=== PATIENT | male | born 1990 | race Caucasian/White ===

== ENCOUNTER 2018-06-29 05:25 | Emergency (ER) | payer SELFPAY ==
[~2018-06-29] VITALS: Ht 188 cm; Wt 106.1 kg
[2018-06-29 05:32] VITALS: BP 145/94
[2018-06-29 06:10] VITALS: BP 145/94
== END 2018-06-29 06:10 | disposition home or self-care (01) ==
LOC: MED 05:25
DX: S02.5XXA Fracture of tooth (traumatic), initial encounter for closed fracture (principal); X58.XXXA Exposure to other specified factors, initial encounter; Y93.89 Activity, other specified; Y92.89 Other specified places as the place of occurrence of the external cause; Y99.8 Other external cause status
CPT/HCPCS: 99283

== ENCOUNTER 2020-01-31 19:22 | Emergency (ER) | payer SELFPAY ==
[~2020-01-31] VITALS: Ht 188 cm; Wt 97.5 kg
[2020-01-31 19:45] VITALS: BP 146/110
--- NOTE | 2020-01-31 20:50 | NUR ---
PT ASSESSED AND EVALUATED BY SEE CARBAJAL. NO NURSING INTERVENTIONS NEED AT THIS TIME.
[2020-01-31 20:53] VITALS: BP 146/110
--- NOTE | 2020-01-31 20:53 | NUR ---
Patient discharged with v/s stable. Written and verbal after care instructions given and explained. Patient alert, oriented and verbalized understanding of instructions. Ambulatory with steady gait. All questions addressed prior to discharge. ID band removed. Patient advised to follow up with PMD. Rx of NOFRAN, AND MOTRIN given. Patient educated on indication of medication including possible reaction and side effects. Opportunity to ask questions provided and answered.
== END 2020-01-31 20:53 | disposition home or self-care (01) ==
LOC: EEVIPCON 19:22 → MED 19:22
DX: K52.9 Noninfective gastroenteritis and colitis, unspecified (principal); F17.210 Nicotine dependence, cigarettes, uncomplicated
CPT/HCPCS: 99283

== ENCOUNTER 2020-06-18 15:46 | Emergency (ER) | payer MEDICAID ==
[~2020-06-18] VITALS: Ht 188 cm; Wt 93.9 kg
[2020-06-18 15:52] VITALS: BP 184/98
--- NOTE | 2020-06-18 15:55 | NUR ---
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 A, A, O x 4, cooperative, HOB elevated Well appearing 29 yo male c/o [birth year], moving other 3 exts w/o difficulty Resp even and unlabored, in NAD. Denies cough, fever VVS, sinus rhythm Awaiting evaluation/examination by MD, will continue to monitor
[2020-06-18] MEDS ORDERED: ASPIRIN 325 MG TAB PO ONE (16:00)
[2020-06-18 16:27] LABS: BASOPHILS # (AUTO) 0.2 K/uL (0.00-0.22); BASOPHILS % (AUTO) 2.2 % (0.0-2.0); EOSINOPHILS % (AUTO) 0.5 % (0.0-4.0); HEMATOCRIT 43.6 % (36-52); HEMOGLOBIN 14.9 g/dL (12.0-18.0); LYMPHOCYTES % (AUTO) 21.1 % (20.5-51.1); MEAN CORPUSCULAR HEMOGLOBIN 31 pg (27-31); MEAN CORPUSCULAR HGB CONC 34 g/dL (33-37); MEAN CORPUSCULAR VOLUME 91.9 fL (80-94); MONOCYTES # (AUTO) 0.3 K/uL (0.8-1.0); MONOCYTES % (AUTO) 3.4 % (1.7-9.3); NEUTROPHILS # (AUTO) 6.8 K/uL (1.8-7.7); NEUTROPHILS % (AUTO) 72.8 % (42.2-75.2); PLATELET COUNT (AUTO) 259 K/uL (140-450); RED BLOOD CELL COUNT(AUTO) 4.75 MIL/uL (4.20-6.10); RED CELL DISTRIBUTION WIDTH 13.5 % (11.6-13.7); WHITE BLOOD COUNT (AUTO) 9.3 K/uL (4.8-10.8)
[2020-06-18 16:31] LABS: ANION GAP 14.9 (8-16); CARBON DIOXIDE 26.3 mmol/L (21-32); CREATININE 0.8 mg/dL (0.6-1.3); POTASSIUM 3.2 mmol/L (3.5-5.1)
[2020-06-18 16:37] LABS: ALBUMIN 4.6 g/dL (3.4-5.0); TOTAL BILIRUBIN 0.6 mg/dL (0.0-1.0)
--- NOTE | 2020-06-18 18:01 | NUR ---
12 lead EKG repated and reviewed by LIN Hernandez
--- NOTE | 2020-06-18 18:03 | NUR ---
Repeat troponin level drawn
--- NOTE | 2020-06-18 18:30 | NUR ---
EKG and troponin stable, MD will discharge patient
[2020-06-18 18:45] VITALS: BP 137/90
--- NOTE | 2020-06-18 18:45 | NUR ---
Patient medically cleared for discharge by MD with v/s stable. Written and verbal after care instructions given and explained. Patient alert, oriented and verbalized understanding of instructions. Ambulatory with steady gait. All questions addressed prior to discharge. ID band removed. Patient advised to follow up with PMD. Rx of flexeril and motrin given. Patient educated on indication of medication including possible reaction and side effects. Opportunity to ask questions provided and answered. Patient left the ED with all his belongings
== END 2020-06-18 18:45 | disposition home or self-care (01) ==
LOC: MED 15:46
DX: M25.519 Pain in unspecified shoulder (principal); F41.9 Anxiety disorder, unspecified; R03.0 Elevated blood-pressure reading, without diagnosis of hypertension; F17.210 Nicotine dependence, cigarettes, uncomplicated
CPT/HCPCS: 36415; 71045; 80053; 84484; 85025; 93005; 99285

== ENCOUNTER 2020-06-25 16:29 | Emergency (ER) | payer SELFPAY ==
[~2020-06-25] VITALS: Ht 188 cm; Wt 93.9 kg
[2020-06-25 16:50] VITALS: BP 136/87
--- NOTE | 2020-06-25 17:29 | NUR ---
AMB TO BED 09
--- NOTE | 2020-06-25 17:47 | NUR ---
DR. NOLASCO EVALUATING PT AT BEDSIDE
--- NOTE | 2020-06-25 18:11 | NUR ---
Patient discharged with v/s stable. Written and verbal after care instructions given and explained. Patient alert, oriented and verbalized understanding of instructions. Ambulatory with steady gait. All questions addressed prior to discharge. ID band removed. Patient advised to follow up with PMD. Rx of PEN VK given. Patient educated on indication of medication including possible reaction and side effects. Opportunity to ask questions provided and answered.
--- NOTE | 2020-06-25 18:11 | NUR ---
PATIENT SEEN AND D/C BY DR. NOLASCO, NO NURSING CARE GIVEN.
[2020-06-25 18:13] VITALS: BP 136/87
== END 2020-06-25 18:11 | disposition home or self-care (01) ==
LOC: MED 16:29
DX: K08.89 Other specified disorders of teeth and supporting structures (principal); L08.9 Local infection of the skin and subcutaneous tissue, unspecified
CPT/HCPCS: 99283

== ENCOUNTER 2020-10-31 18:44 | Emergency (ER) | payer SELFPAY ==
[~2020-10-31] VITALS: Ht 188 cm; Wt 99.8 kg
[2020-10-31 18:50] VITALS: BP 153/90
[2020-10-31 19:39] VITALS: BP 153/90
[2020-10-31] MEDS ORDERED: AMOX-1000 PO (19:43)
== END 2020-10-31 20:04 | disposition home or self-care (01) ==
LOC: MED 18:44
DX: K04.7 Periapical abscess without sinus (principal); F17.200 Nicotine dependence, unspecified, uncomplicated; Z79.899 Other long term (current) drug therapy
CPT/HCPCS: 99283

== ENCOUNTER 2021-08-15 03:02 | Emergency (ER) | payer BC ==
[~2021-08-15] VITALS: Ht 188 cm; Wt 112.9 kg
[~2021-08-15 03:02] MED LIST: AMOX-1000 PO
[2021-08-15 03:10] VITALS: BP 144/90
--- NOTE | 2021-08-15 03:10 | NUR ---
TO LOBBY A/W BED AMBULATORY
--- NOTE | 2021-08-15 03:33 | NUR ---
SEEN AND EXAMINED BY SEE
[2021-08-15 06:02] VITALS: BP 144/90
--- NOTE | 2021-08-15 06:02 | NUR ---
Patient discharged with v/s stable. Written and verbal after care instructions given and explained. Patient verbalized understanding. Ambulatory with steady gait. All questions addressed prior to discharge. Advised to follow up with PMD.
== END 2021-08-15 06:01 | disposition home or self-care (01) ==
LOC: MED 03:02
DX: S76.811A Strain of other specified muscles, fascia and tendons at thigh level, right thigh, initial encounter (principal); F17.210 Nicotine dependence, cigarettes, uncomplicated; I10 Essential (primary) hypertension; X58.XXXA Exposure to other specified factors, initial encounter; Y93.89 Activity, other specified; Y92.89 Other specified places as the place of occurrence of the external cause; Y99.8 Other external cause status
CPT/HCPCS: 76870; 81002; 99284; Q0092

== ENCOUNTER 2023-07-05 11:08 | Emergency (ER) | payer SELFPAY ==
[~2023-07-05] VITALS: Ht 172.7 cm; Wt 81.6 kg
[2023-07-05 11:40] VITALS: BP 125/85; PULSE 77; RESP 18; TEMP 98; O2SAT 98
[2023-07-05 12:12] VITALS: BP 125/85; PULSE 77; RESP 18; TEMP 98; O2SAT 98
[2023-07-05 12:27] LABS: APPEARANCE,URINE CLEAR (CLEAR); BILIRUBIN,URINE NEGATIVE (NEGATIVE); BLOOD, URINE NEGATIVE (NEGATIVE); COLOR,URINE YELLOW (YELLOW); LEUKOCYTE ESTERASE ,URINE 1+ (NEGATIVE); NITRITE, URINE NEGATIVE (NEGATIVE); PROTEIN,URINE NEGATIVE (NEGATIVE); UGLUCOSE NEGATIVE (NEGATIVE); UROBILINOGEN,URINE 0.2 EU/dL (0.2 - 1)
[2023-07-05 12:34] LABS: BACTERIA,URINE 10-30 (MOD) /HPF (None Seen); RBC,URINE 0-5 /HPF (0-5); SQUAMOUS EPITHELIAL CELL,UR 0-3 (FEW) /LPF (0-3 (FEW))
[2023-07-05] MEDS ORDERED: SULF-58 PO (14:05)
== END 2023-07-05 14:15 | disposition home or self-care (01) ==
LOC: MED 11:08
DX: N39.0 Urinary tract infection, site not specified (principal); N50.812 Left testicular pain; N23 Unspecified renal colic; I10 Essential (primary) hypertension; Z98.890 Other specified postprocedural states; Z87.891 Personal history of nicotine dependence; Z79.2 Long term (current) use of antibiotics
CPT/HCPCS: 76870; 81001; 87086; 87491; 99284